=== PATIENT | female | born 1940 | race Hispanic/Latino ===

== ENCOUNTER 2016-12-31 11:50 | Inpatient (IN) | payer MEDICARE ==
--- NOTE | 2016-12-31 12:26 | ED PDOC ---
Syncope/Near Syncope/Dizziness Time Seen by Provider: 12/31/16 12:09 Chief Complaint (Nursing): Dizziness/Lightheaded History Per: Patient Onset/Duration Of Symptoms: Hrs (2) Current Symptoms Are (Timing): Intermittent Episodes Associated Symptoms Preceding Syncopal Episode: No Predromal Symptoms (Sudden Onset) Seizure Or Post-ictal Symptoms: None Severity: Mild Pain Scale Rating Of: 0 Additional Complaint(s): Intermittent episode of dizziness assoc with mild nausea.. Denies headache or abd pain. Mild/chest back discomfort but no palpitation. No LOC. No peripheral weakness or parasthesias. Past Medical History Vital Signs: Last Vital Signs Temp 98.7 F 12/31/16 11:54 Pulse 73 12/31/16 11:54 Resp 18 12/31/16 11:54 BP 178/79 H 12/31/16 11:54 Pulse Ox 95 12/31/16 11:54 - Medical History PMH: HTN - Family History Family History: States: Unknown Family Hx - Home Medications Home Medications: Ambulatory Orders Medication Instructions Recorded Ergocalciferol (Vitamin D2) 50,000 unit PO QWK 12/31/16 [Vitamin D2] Potassium Chloride [Klor-Con 10] 10 meq PO ASDIR 12/31/16 Valsartan/Hydrochlorothiazide 1 tab PO DAILY 12/31/16 [Diovan Hct 320-25 mg Tablet] amLODIPine [Norvasc] 5 mg PO DAILY 12/31/16 - Allergies Allergies/Adverse Reactions: Allergies Allergy/AdvReac Type Severity Reaction Status Date / Time No Known Allergies Allergy Verified 12/31/16 11:53 Review of Systems ROS Statement: Except As Marked, All Systems Reviewed And Found Negative Gastrointestinal: Positive for: Nausea Musculoskeletal: Positive for: Back Pain Neurological: Positive for: Dizziness Physical Exam - Reviewed Nursing Documentation Reviewed: Yes Vital Signs Reviewed: Yes - Physical Exam Appears: Positive for: Non-toxic, No Acute Distress Head Exam: Positive for: ATRAUMATIC, NORMAL INSPECTION, NORMOCEPHALIC Skin: Positive for: Normal Color, Warm, DRY Eye Exam: Positive for: EOMI, Normal appearance, PERRL ENT: Positive for: Normal ENT Inspection Neck: Positive for: Normal, Painless ROM Cardiovascular/Chest: Positive for: Regular Rate, Rhythm Respiratory: Positive for: CNT, Normal Breath Sounds Gastrointestinal/Abdominal: Positive for: Normal Exam, Bowel Sounds, Soft Back: Positive for: Normal Inspection Extremity: Positive for: Normal ROM, Pedal Edema Neurologic/Psych: Positive for: Alert, Oriented - Laboratory Results Result Diagrams: 12/31/16 12:46 12/31/16 16:17 - ECG O2 Sat by Pulse Oximetry: 95 Disposition - Clinical Impression Clinical Impression: Hypokalemia - Patient ED Disposition Is Patient to be Admitted: Yes - Disposition Disposition Time: 17:16 Condition: FAIR Forms: [facility] (Mal[place]ian) - Pt Status Changed To: Hospital Disposition Of: Observation - POA Present On Arrival: None
[2016-12-31 13:01] LABS: BASO # 0.1 K/uL (0.0-0.2); BASO % 0.8 % (0.0-2.0); HEMATOCRIT 38.9 % (34.0-47.0); LYMPH # 1.2 K/uL (1.0-4.3); LYMPH % 13.2 % (20.0-40.0); MEAN CELL VOLUME 86.2 fl (81.0-99.0); MEAN CORPUSCULAR HEMOGLOBIN 28.3 pg (27.0-31.0); MEAN CORPUSCULAR HGB CONC 32.8 g/dL (33.0-37.0); MEAN PLATELET VOLUME 7.7 fl (7.2-11.7); MONO # 0.7 K/uL (0.0-0.8); MONO % 8.3 % (0.0-10.0); NEUT # 6.8 K/uL (1.8-7.0); NEUT % 77.7 % (50.0-75.0); RED CELL DISTRIBUTION WIDTH 13.7 % (11.5-14.5); WHITE BLOOD COUNT 8.8 K/uL (4.8-10.8)
[2016-12-31 13:09] LABS: ALB/GLOB RATIO 1.2 (1.0-2.1); ALKALINE PHOSPHATASE 75 U/L (38-126); ALT/SGPT 26 U/L (9-52); AST/SGOT 28 U/L (14-36); BILIRUBIN,TOTAL 0.6 mg/dl (0.2-1.3); BLOOD UREA NITROGEN 14 mg/dl (7-17); CALCIUM 9.1 mg/dL (8.4-10.2); CARBON DIOXIDE 31 mmol/L (22-30); CHLORIDE 98 mmol/L (98-107); GFR AFRICAN-AMERICAN > 60; GLUCOSE,RANDOM 120 mg/dL (65-105); SODIUM 144 mmol/l (132-148); TOTAL PROTEIN 7.6 G/DL (6.3-8.2)
[2016-12-31] MEDS ORDERED: Potassium Chloride 20 mEq ER Tab PO ONE ×4 (13:17→13:44)
[2016-12-31 13:18] LABS: POTASSIUM 2.5 MMOL/L (3.6-5.0)
[2016-12-31] MEDS ORDERED: Potassium CL 10mEq/100ml 100 ML IVPB ONE ×2 (14:00→16:46)
[2016-12-31] MEDS: Potassium Chl 20 mEq in D5-NS 1,000 ML IV SCH (15:46)
[2016-12-31 16:43] LABS: BLOOD UREA NITROGEN 12 mg/dl (7-17); CALCIUM 9.2 mg/dL (8.4-10.2); CARBON DIOXIDE 31 mmol/L (22-30); CHLORIDE 99 mmol/L (98-107); GFR AFRICAN-AMERICAN > 60; GLUCOSE,RANDOM 103 mg/dL (65-105); POTASSIUM 2.9 MMOL/L (3.6-5.0); SODIUM 144 mmol/l (132-148)
[2016-12-31] MEDS ORDERED: Ergocalciferol 50,000 Intl Units Cap PO SCH (21:30)
[2017-01-01] MEDS: Potassium Chl 20 mEq in D5-NS 1,000 ML IV SCH ×2 (05:41→05:42)
[2017-01-01 06:33] LABS: HEMATOCRIT 38.3 % (34.0-47.0); MEAN CELL VOLUME 86.6 fl (81.0-99.0); MEAN CORPUSCULAR HEMOGLOBIN 28.9 pg (27.0-31.0); MEAN CORPUSCULAR HGB CONC 33.4 g/dL (33.0-37.0); RED CELL DISTRIBUTION WIDTH 14.1 % (11.5-14.5); WHITE BLOOD COUNT 7.1 K/uL (4.8-10.8)
[2017-01-01 06:47] LABS: ALB/GLOB RATIO 1.1 (1.0-2.1); ALKALINE PHOSPHATASE 70 U/L (38-126); ALT/SGPT 23 U/L (9-52); AST/SGOT 29 U/L (14-36); BILIRUBIN,TOTAL 0.7 mg/dl (0.2-1.3); BLOOD UREA NITROGEN 11 mg/dl (7-17); CALCIUM 8.6 mg/dL (8.4-10.2); CARBON DIOXIDE 31 mmol/L (22-30); CHLORIDE 102 mmol/L (98-107); GFR AFRICAN-AMERICAN > 60; GLUCOSE,RANDOM 105 mg/dL (65-105); POTASSIUM 2.8 MMOL/L (3.6-5.0); SODIUM 145 mmol/l (132-148); TOTAL PROTEIN 6.9 G/DL (6.3-8.2)
[2017-01-01] MEDS: Enoxaparin 40 mg Syringe SC SCH (08:36)
[2017-01-01] MEDS ORDERED: Potassium CL 10 MEQ/50 ML 50 ML IVPB SCH (09:00)
[2017-01-01] MEDS: Potassium Chloride 20 mEq ER Tab PO SCH ×2 (09:06→16:43)
--- NOTE | 2017-01-01 09:14 | CARD ---
APPROVED REPORT EKG Measurement Heart [id number] DC 130P8 [id number] <Conclusion> Normal sinus rhythm Possible Left atrial enlargement Borderline ECG
--- NOTE | 2017-01-01 09:31 | CARD ---
APPROVED REPORT EKG Measurement Heart [id number] W[place] 144P23 [id number] <Conclusion> Normal sinus rhythm Possible Left atrial enlargement Nonspecific ST abnormality Abnormal ECG
--- NOTE | 2017-01-01 09:44 | CARD ---
APPROVED REPORT EKG Measurement Heart [id number] FL 138P25 [id number] <Conclusion> Normal sinus rhythm Normal ECG
[2017-01-01] MEDS ORDERED: Iohexol 240 (50 ml) PO ONE (10:37)
[2017-01-01] MEDS: Potassium CL 10mEq/100ml 100 ML IVPB SCH ×3 (10:54→13:34)
[2017-01-01] MEDS ORDERED: Sodium Chloride 0.9% 50 ML IV ONE (15:38)
[2017-01-01] MEDS ORDERED: Iohexol 300 100 ML IJ ONE (15:38)
[2017-01-01] MEDS ORDERED: Artificial Tears Opht Soln OU PRN (16:14)
[2017-01-01] MEDS ORDERED: Erythromycin 0.5% Ophth Oint 1 APPLIC/3.5 G OU ONE (17:37)
[2017-01-01] MEDS ORDERED: Potassium CL 10mEq/100ml 100 ML IVPB ONE (17:40)
--- NOTE | 2017-01-01 21:17 | CP.PCM.HP ---
History of Present Illness - History of Present Illness History of Present Illness: A 76 ur old female with hx of HTN, RIGHT EYE CORNEAL TRANSPLANT sees PMD 1-2\ yr. seen by PMD for blood work, which showed low K, was given k-dur, still low, sent to ER for IV replacement. as per she per she lost weight 22 lbs in ;last2 yrs intentionally with weight watcher program, diet consists of fruits\bread and vegetables. K-2.9 in er ,given IV repeated one is 2.5last colonoscopy is many yrs ago. denies diarrhea,N\Vomiting Present on Admission - Present on Admission Any Indicators Present on Admission: No Review of Systems - Hematologic/Lymphatic Additional comments: - Constitutional Constitutional: Fatigue. absent: Fever, Frequent Falls, Weight Loss, Weakness - EENT Eyes: has Blurred Vision, Other Visual Disturbances Nose/Mouth/Throat: absent: Nasal Discharge, Dysphagia, Hoarsness - Cardiovascular Cardiovascular: noDyspnea on Exertion. absent: Chest Pain, Edema, Palpitations , Pedal Edema, Syncope - Respiratory Respiratory: noCough. absent: Wheezing, Chest Congestion, Excessive Mucous Production - Gastrointestinal Gastrointestinal: no Belching, Bloating, Dyspepsia. absent: Change in Stool Character, Constipation, Melena, Nausea, Vomiting - Genitourinary Genitourinary: no Voiding Freq/Small Amts. absent: Change in Urinary Stream - Musculoskeletal Musculoskeletal: Arthralgias, Back Pain - Neurological Neurological: absent: Behavioral Changes, Convulsions, Paresthesias, Vertigo - Psychiatric Psychiatric: absent: Confusion, Irritability Past Patient History - Past Social History Smoking Status: Former Smoker - CARDIAC Hx Cardiac Disorders: Yes (HTN) Hx Heart Murmur: Yes (stable) Hx Hypertension: Yes - PULMONARY Hx Respiratory Disorders: No - NEUROLOGICAL Hx Neurological Disorder: No - HEENT Hx HEENT Problems: No - RENAL Hx Chronic Kidney Disease: No - ENDOCRINE/METABOLIC Hx Endocrine Disorders: No - HEMATOLOGICAL/ONCOLOGICAL Hx Blood Disorders: No - INTEGUMENTARY Hx Dermatological Problems: No - MUSCULOSKELETAL/RHEUMATOLOGICAL Hx Musculoskeletal Disorders: No Hx Falls: No - GASTROINTESTINAL Hx Gastrointestinal Disorders: No - GENITOURINARY/GYNECOLOGICAL Hx Genitourinary Disorders: No - PSYCHIATRIC Hx Substance Use: No - SURGICAL HISTORY Hx Eye Surgery: Yes (cornea transplants x3; prosthetic) Other/Comment: Right eye surgery - ANESTHESIA Hx Anesthesia: Yes Hx Anesthesia Reactions: No Hx Malignant Hyperthermia: No Has any member of the family had a problem w/ anesthesia?: No Meds Allergies/Adverse Reactions: Allergies Allergy/AdvReac Type Severity Reaction Status Date / Time No Known Allergies Allergy Verified 12/31/16 11:53 Physical Exam - Additional Findings Additional findings: Constitutional Appears: No Acute Distress , NC\AT, - Head Exam Head Exam: ATRAUMATIC, NORMAL INSPECTION - Eye Exam Eye Exam: right eye- closed ,prosthetic eye with mild crusting left eye- EOMI, PEERLA - ENT Exam ENT Exam: Normal Exam - Neck Exam Neck exam: Positive for: Normal Inspection. Negative for: Thyromegaly - Respiratory Exam Respiratory Exam: Clear to Auscultation Bilateral, NORMAL BREATHING PATTERN - Cardiovascular Exam Cardiovascular Exam: REGULAR RHYTHM, +S1, +S2, Systolic Murmur - GI/Abdominal Exam GI & Abdominal Exam: Normal Bowel Sounds, Soft. absent: Distended, Organomegaly , Tenderness Back exam: NORMAL INSPECTION, lower back paraspinal tenderness - Neurological Exam Neurological exam: Alert, CN II-XII Intact, Oriented x3 no focal deficits , reflexes-2 + b\L UE\LE, [place]-negative Skin Exam: Intact, pallor, no wounds noted Results - Vital Signs Recent Vital Signs: Last Vital Signs Temp 98.3 F 01/01/17 19:21 Pulse 87 01/01/17 19:21 Resp 20 01/01/17 19:21 BP 166/99 H 01/01/17 19:21 Pulse Ox 96 01/01/17 19:21 - Labs Result Diagrams: 01/01/17 05:35 01/01/17 14:35 Labs: Laboratory Results - last 24 hr 01/01/17 01/01/17 01/01/17 05:35 05:35 14:35 WBC 7.1 RBC 4.43 Hgb 12.8 Hct 38.3 MCV 86.6 MCH 28.9 MCHC 33.4 RDW 14.1 Plt Count 229 Sodium 145 Potassium 2.8 L 3.2 L Chloride 102 Carbon Dioxide 31 H Anion Gap 15 BUN 11 Creatinine 0.7 Est GFR ( Amer) > 60 Est GFR (Non-Af Amer) > 60 Random Glucose 105 Calcium 8.6 Total Bilirubin 0.7 AST 29 ALT 23 Alkaline Phosphatase 70 Total Protein 6.9 Albumin 3.7 Globulin 3.2 Albumin/Globulin Ratio 1.1 Ur Random Sodium Ur Random Potassium 01/01/17 14:35 WBC RBC Hgb Hct MCV MCH MCHC RDW Plt Count Sodium Potassium Chloride Carbon Dioxide Anion Gap BUN Creatinine Est GFR ( Amer) Est GFR (Non-Af Amer) Random Glucose Calcium Total Bilirubin AST ALT Alkaline Phosphatase Total Protein Albumin Globulin Albumin/Globulin Ratio Ur Random Sodium 38 Ur Random Potassium 32.6 - EKG Data EKG Interpreted by: Myself EKG shows normal: Sinus rhythm Rate: Normal Assessment & Plan (1) Hypokalemia Status: Acute Comment: persistent refractory to oral therapy. urine elctrolytes. likley dietary? CT abdomen and pwlvis with contrast. IV runs with IVF kcl with d5NS. F\U BMP (2) Essential (primary) hypertension Status: Chronic Comment: d\c HCTZ. continue with norvasc and vasotec (3) Eye abnormalities Status: Chronic Comment: s\p corneal transplant. erythromycun ointment Decision To Admit - Pt Status Changed To: Hospital Disposition Of: Observation - . Bed Request Type: Telemetry Admitting Physician: Antonette Cooney
[2017-01-02 06:08] VITALS: RESP 20
[2017-01-02 06:34] LABS: BLOOD UREA NITROGEN 15 mg/dl (7-17); CALCIUM 8.4 mg/dL (8.4-10.2); CARBON DIOXIDE 29 mmol/L (22-30); CHLORIDE 105 mmol/L (98-107); GFR AFRICAN-AMERICAN > 60; GLUCOSE,RANDOM 109 mg/dL (65-105); POTASSIUM 3.5 MMOL/L (3.6-5.0); SODIUM 146 mmol/l (132-148)
[2017-01-02] MEDS: Potassium Chloride 20 mEq ER Tab PO SCH (08:42)
[2017-01-02] MEDS: Enoxaparin 40 mg Syringe SC SCH (08:43)
--- NOTE | 2017-01-02 11:06 | CT ---
PROCEDURE: CT Abdomen and Pelvis with contrast HISTORY: abd pain,nausea hypokalemia COMPARISON: Not available TECHNIQUE: Contrast dose: Abdominal CT Radiation dose: Total exam DLP = 1453.64 mGy-cm. This CT exam was performed using one or more of the following dose reduction techniques: Automated exposure control, adjustment of the mA and/or kV according to patient size, and/or use of iterative reconstruction technique. FINDINGS: LOWER THORAX: Very large hiatal hernia noted containing stomach, proximal duodenum and the majority of the pancreas. Entirety of the stomach is not included in this examination of the lower thorax. LIVER: Unremarkable. No gross lesion or ductal dilatation. GALLBLADDER AND BILE DUCTS: Unremarkable. PANCREAS: Unremarkable. No gross lesion or ductal dilatation. SPLEEN: Unremarkable. ADRENALS: Unilateral left adrenal hypertrophy. There is a 1.5 cm hyperdense right adrenal mass on this contrast-enhanced study. Statistically, this most likely represents an adrenal adenoma. KIDNEYS AND URETERS: Unremarkable. No hydronephrosis. No solid mass. VASCULATURE: Unremarkable. No aortic aneurysm. BOWEL: Sigmoid diverticulosis without evidence of diverticulitis. No bowel obstruction. Please note that the entire duodenum is not visualized since examination due to the large hiatal hernia. The entire stomach is not include. No other abnormal bowel loops. No bowel obstruction. APPENDIX: Normal appendix. PERITONEUM: Unremarkable. No free fluid. No free air. LYMPH NODES: Unremarkable. No enlarged lymph nodes. BLADDER: Poorly distended. No gross abnormality. REPRODUCTIVE: Normal postmenopausal uterus BONES: Mild compression deformity of the superior L4 vertebral endplate of indeterminate age. No other fracture identified. OTHER FINDINGS: None. IMPRESSION: Very large hiatal hernia containing stomach, proximal duodenum and the majority of pancreas. The entirety of the herniated duodenum and stomach are not included on this evaluation of the abdomen and lower thorax. No bowel obstruction. Sigmoid diverticulosis without evidence of diverticulitis. No other acute abnormality identified. Additional minor findings as above. [place] orbits review of so it is retroverted fibroid were you born or mid to upper back while from so Is also antegrade there many were we will 3rd nerve are well the over that it went [place] that they do not want not region on are you over in the interim which creates by niece who is now of [place] screw is suspect some spur are the heart family oral delay through the there is she developed for heart -not V/Q with a with a little have
[2017-01-02] MEDS ORDERED: Pantoprazole 40 mg EC Tab PO SCH (12:15)
[2017-01-02 12:20] VITALS: BP 175/91; PULSE 77; TEMP 98.5; O2SAT 98
[2017-01-02] MEDS ORDERED: Potassium CL 10 MEQ/50 ML 50 ML IVPB SCH (13:00)
--- NOTE | 2017-01-02 13:55 | CP.PCM.PCO ---
Assessment & Plan - Assessment and Plan (Free Text) Assessment: patient feels well today, denies dizziness, h/a, n/v/d, sob, cp or palpitations K=3.[address] Abd Pelvis results noted: Large hiatal hernia, requested surgical consult but pt. wishes to follow up with PMD outpatient All E Rx sent to [facility] pharmacy in [facility] Rx for repeat BMP provided pt. with f/u with PMD Dr.Marc Reid on Thursday pt. cleared for discharge to Home today by
--- NOTE | 2017-01-02 14:10 | CP.PCM.CON ---
History of Present Illness - History of Present Illness History of Present Illness: General Surgery consult for Dr. Baugh Consulted for: hiatal hernia Patient is a 76 y/o severely obese female who was admitted yesterday for severe hypokalemia and dizziness. A CT scan of the chest, abdomen, and pelvis with PO contrast was performed and showed a large hiatal hernia involving the stomach, the proximal duodenoum and part of the pancreas, so general surgery was consulted. Patient denies any nausea, vomiting, eructation, abdominal pain, loss of appetite, diarrhea, constipation, shortness of breath, or chest pain. Patient reports intermittent mild back pain but not other acute symptoms. Patient states her last BM was today and was normal color and consistency without blood. Patient reports a 20 pound intentional weight loss over one year. PMH: HTN, obesity, heart murmur PSH: eye surgery ALL: NKDA Review of Systems - Review of Systems All systems: reviewed and no additional remarkable complaints except (as per HPI ) - Constitutional Constitutional: absent: Chills, Fever Additional comments: normal appetite - Cardiovascular Cardiovascular: Edema. absent: Chest Pain, Dyspnea - Respiratory Respiratory: absent: Cough, Dyspnea, Chest Congestion - Gastrointestinal Gastrointestinal: absent: Abdominal Pain, Constipation, Diarrhea, Loose Stools, Melena, Nausea, Vomiting Additional comments: denies eructation - Genitourinary Genitourinary: absent: Dysuria, Hematuria - Musculoskeletal Musculoskeletal: Back Pain - Neurological Neurological: Dizziness. absent: Syncope, Weakness Past Patient History - Past Social History Smoking Status: Former Smoker - CARDIAC Hx Cardiac Disorders: Yes (HTN) Hx Heart Murmur: Yes (stable) Hx Hypertension: Yes - PULMONARY Hx Respiratory Disorders: No - NEUROLOGICAL Hx Neurological Disorder: No - HEENT Hx HEENT Problems: No - RENAL Hx Chronic Kidney Disease: No - ENDOCRINE/METABOLIC Hx Endocrine Disorders: No - HEMATOLOGICAL/ONCOLOGICAL Hx Blood Disorders: No - INTEGUMENTARY Hx Dermatological Problems: No - MUSCULOSKELETAL/RHEUMATOLOGICAL Hx Musculoskeletal Disorders: No Hx Falls: No - GASTROINTESTINAL Hx Gastrointestinal Disorders: No - GENITOURINARY/GYNECOLOGICAL Hx Genitourinary Disorders: No - PSYCHIATRIC Hx Substance Use: No - SURGICAL HISTORY Hx Eye Surgery: Yes (cornea transplants x3; prosthetic) Other/Comment: Right eye surgery - ANESTHESIA Hx Anesthesia: Yes Hx Anesthesia Reactions: No Hx Malignant Hyperthermia: No Has any member of the family had a problem w/ anesthesia?: No Meds Home Medications: Home Medication List Medication Instructions Recorded Confirmed Type Carvedilol [Coreg] 3.125 mg PO Q12 #60 tab 01/02/17 Rx Pantoprazole [Protonix EC Tab] 40 mg PO DAILY #30 ect 01/02/17 Rx Potassium Chloride [K-Dur 20 mEq 20 meq PO DAILY #3 tab 01/02/17 Rx ER Tab] Valsartan [Diovan] 320 mg PO DAILY #30 tab 01/02/17 Rx amLODIPine [Norvasc] 10 mg PO DAILY #30 tab 01/02/17 Rx Allergies/Adverse Reactions: Allergies Allergy/AdvReac Type Severity Reaction Status Date / Time No Known Allergies Allergy Verified 12/31/16 11:53 - Medications Medications: Current Medications Amlodipine Besylate (Norvasc) 10 mg PO DAILY [facility] Last Admin: 01/02/17 08:42 Dose: 10 mg Artificial Tears (Artificial Tears) 2 drop OU Q6 PRN PRN Reason: Dry eyes Last Admin: 01/01/17 17:19 Dose: 2 drop Carvedilol (Coreg) 3.125 mg PO Q12 [facility] Enoxaparin Sodium (Lovenox) 40 mg SC DAILY [facility] PRN Reason: Protocol Last Admin: 01/02/17 08:43 Dose: 40 mg Ergocalciferol (Drisdol 50,000 Intl Units Cap) 1 cap PO Q7D [facility] Last Admin: 01/01/17 01:21 Dose: Not Given Potassium Chloride (Potassium Cl 10meq/50ml Sterile Water) 50 mls @ 50 mls/hr IVPB Q1 [facility] Stop: 01/02/17 15:59 Pantoprazole Sodium (Protonix Ec Tab) 40 mg PO DAILY [facility] Potassium Chloride (K-Dur 20 Meq Er Tab) 20 meq PO BID [facility] Last Admin: 01/02/17 08:42 Dose: 20 meq Valsartan (Diovan) 320 mg PO DAILY [facility] Last Admin: 01/02/17 08:42 Dose: 320 mg Physical Exam - Constitutional Appears: Non-toxic, No Acute Distress - Head Exam Head Exam: ATRAUMATIC, NORMOCEPHALIC - Eye Exam Eye Exam: Normal appearance. absent: Conjunctival injection, Scleral icterus - ENT Exam ENT Exam: Mucous Membranes Moist, Normal Oropharynx - Respiratory Exam Respiratory Exam: NORMAL BREATHING PATTERN. absent: Accessory Muscle Use, Chest Wall Tenderness, Respiratory Distress - Cardiovascular Exam Cardiovascular Exam: RRR - GI/Abdominal Exam GI & Abdominal Exam: Soft. absent: Distended, Tenderness - Extremities Exam Extremities exam: Positive for: pedal edema. Negative for: calf tenderness, tenderness - Back Exam Back exam: NORMAL INSPECTION. absent: CVA tenderness (L), CVA tenderness (R), muscle spasm, paraspinal tenderness - Neurological Exam Neurological exam: Alert, Oriented x3 - Psychiatric Exam Psychiatric exam: Normal Affect, Normal Mood - Skin Skin Exam: Dry, Intact, Normal Color, Warm Results - Vital Signs Recent Vital Signs: Last Vital Signs Temp 98.5 F 01/02/17 12:00 Pulse 77 01/02/17 12:00 Resp 20 01/02/17 12:00 BP 175/91 H 01/02/17 12:00 Pulse Ox 98 01/02/17 12:00 - Labs Result Diagrams: 01/01/17 05:35 01/02/17 05:30 Labs: Laboratory Results - last 24 hr 01/01/17 01/01/17 01/02/17 14:35 14:35 05:30 Sodium 146 Potassium 3.2 L 3.5 L Chloride 105 Carbon Dioxide 29 Anion Gap 16 BUN 15 Creatinine 0.9 Est GFR ( Amer) > 60 Est GFR (Non-Af Amer) > 60 Random Glucose 109 H Calcium 8.4 Ur Random Sodium 38 Ur Random Potassium 32.6 Assessment & Plan - Assessment and Plan (Free Text) Assessment: 76F with large hiatal hernia with stomach, proximal duodenum, and pancreas, no abdominal or respiratory symptoms Plan: - No plan for surgical intervention at this time since patient is asymptomatic - Patient may follow up with Dr. Baugh or his partners in his office as an outpatient - Please reach out to the surgical team for any further questions or concerns Discussed with Dr. Amauri Hammer, PGY2
== END 2017-01-02 15:55 | disposition home or self-care (01) | DRG 641 ==
LOC: H.ER 11:50 → H.ERHOLD 13:23 → H.TEL 18:56 → OBSVTOIN 01-01 13:23
PROVIDERS: ADMIT Internal Medicine; ATTEND Internal Medicine
DX: E87.6 Hypokalemia (principal); E66.01 Morbid (severe) obesity due to excess calories; Z68.35 Body mass index [BMI] 35.0-35.9, adult; K44.9 Diaphragmatic hernia without obstruction or gangrene; I10 Essential (primary) hypertension; Z94.7 Corneal transplant status; Z87.891 Personal history of nicotine dependence

== ENCOUNTER 2017-05-04 13:23 | Inpatient (IN) | payer MEDICARE ==
--- NOTE | 2017-05-04 14:35 | ED PDOC ---
Syncope/Near Syncope/Dizziness Time Seen by Provider: 05/04/17 13:37 Chief Complaint (Nursing): Dizziness/Lightheaded Chief Complaint (Provider): "i feel off" History Per: Patient History/Exam Limitations: no limitations Onset/Duration Of Symptoms: Hrs Current Symptoms Are (Timing): Still Present Activity At Onset Of Symptoms: Walking, Had Just Stood up Fall Associated With With Symptoms: No Additional Complaint(s): 77 y/o female, hx of HTN, on valsartan/amlodipine, presents complaining of acute onset of dizziness at 10:30am this morning. Pt reports being in state of good health until about last night, where she reports she began to feel a bit unsteady. She woke up this morning, still "feeling off" and took her usual medications as prescribed. She reports feeling more unsteady and weaker than usual and also has some decreased hearing in the right ear. She denies any triggering event. Reports suffering from a bad cold during the first week or so of April. She feels this is similar weakness to when she was admitted for Hypokalemia in Dec 2016. She denies any fever/chills, headaches, changes in vision, CP/SOB/palpitations, pre-syncopal/black out symptoms, LOC, fall, N/V/D, numbness/tingling, urinary symptoms. Past Medical History Reviewed: Historical Data, Nursing Documentation, Vital Signs Vital Signs: Last Vital Signs Temp 97.4 F L 05/04/17 13:27 Pulse 61 05/04/17 13:27 Resp 18 05/04/17 13:27 BP 137/69 05/04/17 13:27 Pulse Ox 96 05/04/17 13:27 - Medical History PMH: HTN Denies: Chronic Kidney Disease - Family History Family History: States: Unknown Family Hx - Home Medications Home Medications: Ambulatory Orders Medication Instructions Recorded Ergocalciferol (Vitamin D2) 50,000 unit PO QWK 12/31/16 [Vitamin D2] Carvedilol [Coreg] 3.125 mg PO Q12 #60 tab 01/02/17 Pantoprazole [Protonix EC Tab] 40 mg PO DAILY #30 ect 01/02/17 Potassium Chloride [K-Dur 20 mEq 20 meq PO DAILY #3 tab 01/02/17 ER Tab] Valsartan [Diovan] 320 mg PO DAILY #30 tab 01/02/17 amLODIPine [Norvasc] 10 mg PO DAILY #30 tab 01/02/17 - Allergies Allergies/Adverse Reactions: Allergies Allergy/AdvReac Type Severity Reaction Status Date / Time No Known Allergies Allergy Verified 12/31/16 11:53 Review of Systems ROS Statement: Except As Marked, All Systems Reviewed And Found Negative Physical Exam - Reviewed Nursing Documentation Reviewed: Yes Vital Signs Reviewed: Yes - Physical Exam Appears: Positive for: Non-toxic, No Acute Distress Head Exam: Positive for: ATRAUMATIC Skin: Positive for: Warm, Dry Eye Exam: Positive for: EOMI, PERRL, Conjunctival injection. Negative for: Normal appearance (s/p Right Enucleation surgery ), Nystagmus, Periorbital swelling ENT: Positive for: Normal ENT Inspection Neck: Positive for: Painless ROM, Supple Cardiovascular/Chest: Positive for: Regular Rate, Rhythm, Murmur, Bradycardia, Tachycardia. Negative for: JVD Respiratory: Positive for: Normal Breath Sounds. Negative for: Decreased Breath Sounds, Accessory Muscle Use, Crackles, Rales, Rhonchi, Wheezing, Respiratory Distress Pulses-Radial (L): 2+ Pulses-Radial (R): 2+ DTR - Knee (R): 2+ DTR - Knee (L): 2+ Lymphatic: Negative for: Adenopathy Neurologic/Psych: Positive for: Alert, senior patrol agent II-XII, Oriented, Cerebellar Tests ( finger-nose inaccurate, heel sanchez inaccurate ). Negative for: Aphasia, Facial Droop - Laboratory Results Result Diagrams: 05/04/17 14:44 05/04/17 14:44 - ECG O2 Sat by Pulse Oximetry: 96 - Progress ED Course And Treament: CBC CMP Troponin I Coags EKG Head CT w/o contrast pt to be admitted for dizziness/vertebrobasilar insuff neurology consult pending Disposition - Clinical Impression Clinical Impression: Vertebrobasilar insufficiency - Patient ED Disposition Is Patient to be Admitted: Yes - Disposition Disposition Time: 17:24 Condition: STABLE - Pt Status Changed To: Hospital Disposition Of: Inpatient - Admit Certification Admit to Inpatient:: After my assessment, the patient will require hospitalization for at least two midnights. This is because of the severity of symptoms shown, intensity of services needed, and/or the medical risk in this patient being treated as an outpatient.
[2017-05-04 14:47] LABS: HEMOGLOBIN 14.7 g/dL (12.0-16.0); MEAN CELL VOLUME 86.7 fl (81.0-99.0); MEAN CORPUSCULAR HEMOGLOBIN 29.1 pg (27.0-31.0); MEAN CORPUSCULAR HGB CONC 33.5 g/dL (33.0-37.0); RBC 5.04 Mil/uL (3.80-5.20); RED CELL DISTRIBUTION WIDTH 14.1 % (11.5-14.5); WHITE BLOOD COUNT 10.1 K/uL (4.8-10.8)
[2017-05-04 14:59] LABS: ALB/GLOB RATIO 1.2 (1.0-2.1); ALBUMIN 4.7 g/dL (3.5-5.0); ALT/SGPT 22 U/L (9-52); AST/SGOT 21 U/L (14-36); BLOOD UREA NITROGEN 13 mg/dl (7-17); CALCIUM 9.8 mg/dL (8.4-10.2); GFR AFRICAN-AMERICAN > 60; GFR NON-AFRICAN AMERICAN > 60
[2017-05-04 15:13] LABS: PROTHROMBIN TIME 11.1 Seconds (9.8-13.1)
--- NOTE | 2017-05-04 15:31 | CT ---
PROCEDURE: CT HEAD WITHOUT CONTRAST. HISTORY: dizziness COMPARISON: None available. TECHNIQUE: Axial computed tomography images were obtained through the head/brain without intravenous contrast. Radiation dose: Total exam DLP = 1617.76 mGy-cm. This CT exam was performed using one or more of the following dose reduction techniques: Automated exposure control, adjustment of the mA and/or kV according to patient size, and/or use of iterative reconstruction technique. FINDINGS: HEMORRHAGE: No intracranial hemorrhage. BRAIN: No mass effect or edema. No atrophy or chronic microvascular ischemic changes. VENTRICLES: Unremarkable. No hydrocephalus. CALVARIUM: Unremarkable. PARANASAL SINUSES: Unremarkable as visualized. No significant inflammatory changes. MASTOID AIR CELLS: Unremarkable as visualized. No inflammatory changes. OTHER FINDINGS: None. IMPRESSION: Suboptimal study due to patient's motion . No evidence of acute intracranial hemorrhage mass effect or midline shift.
[2017-05-04 16:05] LABS: SQUAMOUS EPITHIAL < 1 /hpf (0-5); URINE BILIRUBIN NEGATIVE (NEGATIVE); URINE BLOOD NEGATIVE (NEGATIVE); URINE CLARITY CLEAR (Clear); URINE COLOR COLORLESS (YELLOW); URINE GLUCOSE (UA) NEG (Normal); URINE LEUKOCYTE ESTERASE NEG Leu/uL (Negative); URINE NITRATE NEGATIVE (NEGATIVE); URINE PROTEIN NEGATIVE (NEGATIVE); URINE UROBILINOGEN 0.2-1.0 mg/dL (0.2-1.0)
[2017-05-04] MEDS ORDERED: Carbamide Peroxide OTIC SOLUTION AD SCH (17:00)
[2017-05-04] MEDS: Carbamide Peroxide OTIC SOLUTION AD SCH (17:10)
--- NOTE | 2017-05-05 08:39 | CARD ---
APPROVED REPORT EKG Measurement Heart [id number] [place] 134P25 [id number] <Conclusion> Normal sinus rhythm Possible Left atrial enlargement Borderline ECG
[2017-05-05] MEDS: Carbamide Peroxide OTIC SOLUTION AD SCH ×2 (10:55→17:31)
--- NOTE | 2017-05-05 13:02 | CP.PCM.CON ---
History of Present Illness - History of Present Illness History of Present Illness: This 77-year-old female is well -known to me from a prior office visit in 2015. The patient has come to the emergency room complaining off a brief sense of lightheadedness which promptly resolved. By the time she came to the emergency room she did not any further lightheadedness and it has not recurred since over the last 24 hours. The patient gives history of having been hospitalized in December 2016 with similar symptoms and was found to have hypokalemia which was corrected. Her symptoms of lightheadedness where a scribe to hypokalemia and the patient was sent home and has not had any further lightheadedness. She gives history of recently developing severe bronchitis and pharyngitis and has abruptly diminished hearing in the right ear. The patient has been chronically overweight and a hypertensive for more than 10 years. She has had severe osteoarthritis of her knee and used to take non- steroidal anti-inflammation drugs which she has discontinued since mid 2015. She used to be a smoker until 12 years back and has quit since. She has never suffered a myocardial infarction or congestive cardiac failure. 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 Physical examination shows a pleasant elderly lady who is alert awake weren't and afebrile. She breathes comfortably lying flat in bed at 16 breaths per minute and has a heart rate of 74 bpm regular. Her blood pressure in the left upper extremity was 160/80 mmHg. The patient has not received her antihypertensives for over 24 hours. Her jugular venous pressure was not elevated there was mild pitting edema hour both lower extremities. Pedal pulses were feeble but distinct of present. There were no carotid bruits. Her next images are warm her nailbeds were pink and there were no central or peripheral cyanosis. The apex was not palpable the first and second heart sounds are normal there was a very brief ejection systolic murmur in the aortic area the second heart sound was well heard. Abdomen was soft liver and spleen are not palpable. Her electro-cardiogram showed sinus rhythm with a normal EKG pattern there was a suggestion of left atrial enlargement. Her lab data was noted. Her serum potassium and TSH and BUN and creatinine were normal. Impression: Vertigo possibly secondary to right vestibular dysfunction. Hypertension. Chronic exogenous obesity. Her telemetry shows sinus rhythm at physiological rates. The patient is stable from cardiac vascular point of few and no further intervention is recommended at this juncture. Past Patient History - Past Medical History & Family History Past Medical History?: Yes - Past Social History Smoking Status: Never Smoked - CARDIAC Hx Cardiac Disorders: Yes Hx Hypertension: Yes - PULMONARY Hx Respiratory Disorders: No - NEUROLOGICAL Hx Neurological Disorder: No - HEENT Hx HEENT Problems: Yes Hx Blind: Yes (Right eye) - RENAL Hx Chronic Kidney Disease: No - ENDOCRINE/METABOLIC Hx Endocrine Disorders: No - HEMATOLOGICAL/ONCOLOGICAL Hx Blood Disorders: No Hx AIDS: No Hx Human Immunodeficiency Virus (HIV): No - INTEGUMENTARY Hx Dermatological Problems: No - MUSCULOSKELETAL/RHEUMATOLOGICAL Hx Musculoskeletal Disorders: No Hx Falls: No Other/Comment: Uses cane - GASTROINTESTINAL Hx Gastrointestinal Disorders: No - GENITOURINARY/GYNECOLOGICAL Hx Genitourinary Disorders: No - PSYCHIATRIC Hx Psychophysiologic Disorder: No Hx Substance Use: No - SURGICAL HISTORY Hx Surgeries: Yes Hx Eye Surgery: Yes (cornea transplants x3; prosthetic) Other/Comment: Right eye surgery - ANESTHESIA Hx Anesthesia: Yes Hx Anesthesia Reactions: No Hx Malignant Hyperthermia: No Meds Allergies/Adverse Reactions: Allergies Allergy/AdvReac Type Severity Reaction Status Date / Time No Known Allergies Allergy Verified 12/31/16 11:53 - Medications Medications: Current Medications Amlodipine Besylate (Norvasc) 10 mg PO DAILY [facility] Carbamide Peroxide (Debrox Ear Drops) 5 drop AD BID [facility] Last Admin: 05/05/17 10:55 Dose: 5 drop Enoxaparin Sodium (Lovenox) 40 mg SC DAILY [facility] PRN Reason: Protocol Pantoprazole Sodium (Protonix Ec Tab) 40 mg PO DAILY [facility] Valsartan (Diovan) 320 mg PO DAILY [facility] Results - Vital Signs Recent Vital Signs: Last Vital Signs Temp 98.7 F 05/05/17 12:00 Pulse 70 05/05/17 12:00 Resp 18 05/05/17 12:00 BP 152/84 H 05/05/17 12:00 Pulse Ox 96 05/05/17 12:00 - Labs Result Diagrams: 05/04/17 14:44 05/04/17 14:44 Labs: Laboratory Results - last 24 hr 05/04/17 05/04/17 05/04/17 14:44 14:44 14:44 WBC 10.1 RBC 5.04 Hgb 14.7 Hct 43.7 MCV 86.7 MCH 29.1 MCHC 33.5 RDW 14.1 Plt Count 268 PT 11.1 INR 1.0 APTT 34.0 Sodium 143 Potassium 4.4 Chloride 104 Carbon Dioxide 25 Anion Gap 18 BUN 13 Creatinine 0.8 Est GFR ( Amer) > 60 Est GFR (Non-Af Amer) > 60 POC Glucose (mg/dL) Random Glucose 113 H Calcium 9.8 Total Bilirubin 0.7 AST 21 ALT 22 Alkaline Phosphatase 93 Troponin I < 0.0120 Total Protein 8.8 H Albumin 4.7 Globulin 4.1 H Albumin/Globulin Ratio 1.2 Vitamin B12 TSH 3rd Generation Urine Color Urine Clarity Urine pH Ur Specific [place] Urine Protein Urine Glucose (UA) Urine Ketones Urine Blood Urine Nitrate Urine Bilirubin Urine Urobilinogen Ur Leukocyte Esterase Urine RBC (Auto) Urine Microscopic WBC Ur Squamous Epith Cells 05/04/17 05/04/17 05/05/17 14:46 15:53 06:05 WBC RBC Hgb Hct MCV MCH MCHC RDW Plt Count PT INR APTT Sodium Potassium Chloride Carbon Dioxide Anion Gap BUN Creatinine Est GFR ( Amer) Est GFR (Non-Af Amer) POC Glucose (mg/dL) 105 Random Glucose Calcium Total Bilirubin AST ALT Alkaline Phosphatase Troponin I < 0.0120 Total Protein Albumin Globulin Albumin/Globulin Ratio Vitamin B12 458 TSH 3rd Generation 1.47 Urine Color Colorless Urine Clarity Clear Urine pH 8.0 Ur Specific [place] 1.005 Urine Protein Negative Urine Glucose (UA) Neg Urine Ketones Negative Urine Blood Negative Urine Nitrate Negative Urine Bilirubin Negative Urine Urobilinogen 0.2-1.0 Ur Leukocyte Esterase Neg Urine RBC (Auto) 1 Urine Microscopic WBC < 1 Ur Squamous Epith Cells < 1
[2017-05-05] MEDS: Enoxaparin 40 mg Syringe SC SCH (13:05)
--- NOTE | 2017-05-05 15:03 | CP.PCM.HP ---
History of Present Illness - History of Present Illness History of Present Illness: 77 yr old F presented to ED with complaint of dizziness and feeling unbalanced x 1 day. PMHx includes HTN and right eye removal. Associated symptoms are decreased hearing in right ear, and worsening of symptoms after she took her meds. Denies chest pain, SOB, syncope, confusion, fevers, chills, nausea or vomiting. Patient reports her symptoms are similar to when she was admitted for hypokalemia in 12/2016. PMD: Rigo Mathews Specialists: Dr. 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 FMHx: mother at 84 yrs old from Alzheimers' complications, father at 59 from [place], brother from lymphoma at 69 SocHx: denies tobacco/Etoh or drugs, lives with Medications: see medication reconciliation Allergies: NKDA Present on Admission - Present on Admission Any Indicators Present on Admission: No History of DVT/PE: No History of Uncontrolled Diabetes: No Urinary Catheter: No Decubitus Ulcer Present: No History Surgical Site Infection Following: None Review of Systems - Review of Systems All systems: reviewed and no additional remarkable complaints except (for what is mentioned in the HPI) - Constitutional Constitutional: absent: Chills, Fever - EENT Eyes: absent: Blurred Vision, Change in Vision Ears: Abnormal Hearing (right ear), Dizziness. absent: Ear Discharge, Ear Pain Nose/Mouth/Throat: absent: Nasal Congestion, Nasal Discharge - Cardiovascular Cardiovascular: absent: Chest Pain, Dyspnea - Respiratory Respiratory: absent: Hemoptysis - Gastrointestinal Gastrointestinal: absent: Abdominal Pain, Nausea, Vomiting - Genitourinary Genitourinary: absent: Difficulty Urinating, Dysuria - Musculoskeletal Musculoskeletal: absent: Muscle Weakness, Radiating Pain into Limb - Integumentary Integumentary: absent: Bleeding Lesions - Neurological Neurological: absent: Confusion - Psychiatric Psychiatric: absent: Anxiety, Change in Appetite - Endocrine Endocrine: absent: Polydipsia, Polyuria - Hematologic/Lymphatic Hematologic: absent: Easy Bleeding, Easy Bruising Past Patient History - Past Medical History & Family History Past Medical History?: Yes - Past Social History Smoking Status: Never Smoked - CARDIAC Hx Cardiac Disorders: Yes Hx Hypertension: Yes - PULMONARY Hx Respiratory Disorders: No - NEUROLOGICAL Hx Neurological Disorder: No - HEENT Hx HEENT Problems: Yes Hx Blind: Yes (Right eye) - RENAL Hx Chronic Kidney Disease: No - ENDOCRINE/METABOLIC Hx Endocrine Disorders: No - HEMATOLOGICAL/ONCOLOGICAL Hx Blood Disorders: No Hx AIDS: No Hx Human Immunodeficiency Virus (HIV): No - INTEGUMENTARY Hx Dermatological Problems: No - MUSCULOSKELETAL/RHEUMATOLOGICAL Hx Musculoskeletal Disorders: No Hx Falls: No Other/Comment: Uses cane - GASTROINTESTINAL Hx Gastrointestinal Disorders: No - GENITOURINARY/GYNECOLOGICAL Hx Genitourinary Disorders: No - PSYCHIATRIC Hx Psychophysiologic Disorder: No Hx Substance Use: No - SURGICAL HISTORY Hx Surgeries: Yes Hx Eye Surgery: Yes (cornea transplants x3; prosthetic) Other/Comment: Right eye surgery - ANESTHESIA Hx Anesthesia: Yes Hx Anesthesia Reactions: No Hx Malignant Hyperthermia: No Meds Allergies/Adverse Reactions: Allergies Allergy/AdvReac Type Severity Reaction Status Date / Time No Known Allergies Allergy Verified 12/31/16 11:53 Physical Exam - Constitutional Appears: No Acute Distress - Head Exam Head Exam: ATRAUMATIC, NORMOCEPHALIC - Eye Exam Eye Exam: EOMI (left), PERRL (left) Additional comments: right glass prosthetic - ENT Exam ENT Exam: Mucous Membranes Moist - Neck Exam Neck exam: Positive for: Full Rom. Negative for: Lymphadenopathy - Respiratory Exam Respiratory Exam: Clear to Auscultation Bilateral, NORMAL BREATHING PATTERN - Cardiovascular Exam Cardiovascular Exam: REGULAR RHYTHM, +S1, +S2 - GI/Abdominal Exam GI & Abdominal Exam: Normal Bowel Sounds, Soft (obese) - Extremities Exam Extremities exam: Positive for: full ROM, pedal edema (trace bilaterally) - Neurological Exam Neurological exam: Alert, Oriented x3 - Psychiatric Exam Psychiatric exam: Normal Affect, Normal Mood - Skin Skin Exam: Dry, Normal Color, Warm Results - Vital Signs Recent Vital Signs: Last Vital Signs Temp 98.7 F 05/05/17 12:00 Pulse 80 05/05/17 13:04 Resp 18 05/05/17 12:00 BP 152/84 H 05/05/17 13:04 Pulse Ox 96 05/05/17 12:00 - Labs Result Diagrams: 05/04/17 14:44 05/04/17 14:44 Labs: Laboratory Results - last 24 hr 05/04/17 05/04/17 05/04/17 14:44 14:44 14:44 WBC 10.1 RBC 5.04 Hgb 14.7 Hct 43.7 MCV 86.7 MCH 29.1 MCHC 33.5 RDW 14.1 Plt Count 268 PT 11.1 INR 1.0 APTT 34.0 Troponin I < 0.0120 Vitamin B12 TSH 3rd Generation Urine Color Urine Clarity Urine pH Ur Specific [place] Urine Protein Urine Glucose (UA) Urine Ketones Urine Blood Urine Nitrate Urine Bilirubin Urine Urobilinogen Ur Leukocyte Esterase Urine RBC (Auto) Urine Microscopic WBC Ur Squamous Epith Cells 05/04/17 05/05/17 15:53 06:05 WBC RBC Hgb Hct MCV MCH MCHC RDW Plt Count PT INR APTT Troponin I < 0.0120 Vitamin B12 458 TSH 3rd Generation 1.47 Urine Color Colorless Urine Clarity Clear Urine pH 8.0 Ur Specific [place] 1.005 Urine Protein Negative Urine Glucose (UA) Neg Urine Ketones Negative Urine Blood Negative Urine Nitrate Negative Urine Bilirubin Negative Urine Urobilinogen 0.2-1.0 Ur Leukocyte Esterase Neg Urine RBC (Auto) 1 Urine Microscopic WBC < 1 Ur Squamous Epith Cells < 1 Assessment & Plan - Assessment and Plan (Free Text) Assessment: 77 yr old F admitted for dizziness and disequilibrium. -Admit to tele -cardiac monitoring -continue home medications -heart healthy diet -Neurology on consult: will follow recommendations -Cardiology on consult: will follow recommendations -Lovenox 40mg SC QD for DVT prophylaxis -PT -f/u labs - Date & Time Date: 05/05/17 Time: 07:30
--- NOTE | 2017-05-05 16:32 | CP.PCM.CON ---
History of Present Illness - History of Present Illness History of Present Illness: Mr. 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 She did not describe any vertigo, but does have some hearing loss in the right ear, that seems to be improving since using ear drops. She does not have ringing or a "swooshing" sound in her ear. Review of Systems - Review of Systems All systems: reviewed and no additional remarkable complaints except Past Patient History - Past Medical History & Family History Past Medical History?: Yes - Past Social History Smoking Status: Never Smoked - CARDIAC Hx Cardiac Disorders: Yes Hx Hypertension: Yes - PULMONARY Hx Respiratory Disorders: No - NEUROLOGICAL Hx Neurological Disorder: No - HEENT Hx HEENT Problems: Yes Hx Blind: Yes (Right eye) - RENAL Hx Chronic Kidney Disease: No - ENDOCRINE/METABOLIC Hx Endocrine Disorders: No - HEMATOLOGICAL/ONCOLOGICAL Hx Blood Disorders: No Hx AIDS: No Hx Human Immunodeficiency Virus (HIV): No - INTEGUMENTARY Hx Dermatological Problems: No - MUSCULOSKELETAL/RHEUMATOLOGICAL Hx Musculoskeletal Disorders: No Hx Falls: No Other/Comment: Uses cane - GASTROINTESTINAL Hx Gastrointestinal Disorders: No - GENITOURINARY/GYNECOLOGICAL Hx Genitourinary Disorders: No - PSYCHIATRIC Hx Psychophysiologic Disorder: No Hx Substance Use: No - SURGICAL HISTORY Hx Surgeries: Yes Hx Eye Surgery: Yes (cornea transplants x3; prosthetic) Other/Comment: Right eye surgery - ANESTHESIA Hx Anesthesia: Yes Hx Anesthesia Reactions: No Hx Malignant Hyperthermia: No Meds Allergies/Adverse Reactions: Allergies Allergy/AdvReac Type Severity Reaction Status Date / Time No Known Allergies Allergy Verified 12/31/16 11:53 - Medications Medications: Current Medications Amlodipine Besylate (Norvasc) 10 mg PO DAILY [facility] Last Admin: 05/05/17 13:04 Dose: 10 mg Carbamide Peroxide (Debrox Ear Drops) 5 drop AD BID [facility] Last Admin: 05/05/17 10:55 Dose: 5 drop Enoxaparin Sodium (Lovenox) 40 mg SC DAILY [facility] PRN Reason: Protocol Last Admin: 05/05/17 13:05 Dose: 40 mg Pantoprazole Sodium (Protonix Ec Tab) 40 mg PO DAILY [facility] Valsartan (Diovan) 320 mg PO DAILY [facility] Last Admin: 05/05/17 13:04 Dose: 320 mg Physical Exam - Constitutional Appears: Well - Head Exam Head Exam: ATRAUMATIC, NORMAL INSPECTION, NORMOCEPHALIC - Neck Exam Neck exam: Positive for: Normal Inspection - Respiratory Exam Respiratory Exam: Clear to Auscultation Bilateral, NORMAL BREATHING PATTERN - GI/Abdominal Exam GI & Abdominal Exam: Normal Bowel Sounds, Soft. absent: Tenderness - Rectal Exam Rectal Exam: Deferred - Extremities Exam Extremities exam: Positive for: normal inspection - Neurological Exam Neurological exam: Alert, CN II-XII Intact, Normal Gait, Oriented x3, Reflexes Normal Results - Vital Signs Recent Vital Signs: Last Vital Signs Temp 98.5 F 05/05/17 16:20 Pulse 73 05/05/17 16:20 Resp 14 05/05/17 16:20 BP 154/92 H 05/05/17 16:20 Pulse Ox 96 05/05/17 16:20 - Labs Result Diagrams: 05/04/17 14:44 05/04/17 14:44 Labs: Laboratory Results - last 24 hr 05/05/17 05/05/17 05/05/17 06:05 14:12 14:30 POC Glucose (mg/dL) 119 H Troponin I < 0.0120 < 0.0120 Vitamin B12 458 TSH 3rd Generation 1.47 Assessment & Plan (1) Dizziness Assessment and Plan: This may be related to medications, or changes in position, possibly due to dysequilibrium. I recommend obtaining a CTA of the head/neck to rule out vertebrobasilar insufficiency. Otherwise, continue cardiac work-up, hydration, PT/OT eval and may start aspirin 81 mg daily. Thank you. Status: Acute Priority: High
[2017-05-05] MEDS ORDERED: Erythromycin 0.5% Ophth Oint 1 APPLIC/3.5 G OU SCH (23:00)
[2017-05-05] MEDS: Erythromycin 0.5% Ophth Oint 1 APPLIC/G OU SCH (23:45)
[2017-05-05] MEDS: Artificial Tears Opht Soln OU PRN (23:45)
[2017-05-06 00:21] VITALS: RESP 18
[2017-05-06 06:54] LABS: HEMOGLOBIN 13.4 g/dL (12.0-16.0); MEAN CELL VOLUME 86.7 fl (81.0-99.0); MEAN CORPUSCULAR HEMOGLOBIN 28.8 pg (27.0-31.0); MEAN CORPUSCULAR HGB CONC 33.2 g/dL (33.0-37.0); RBC 4.64 Mil/uL (3.80-5.20); RED CELL DISTRIBUTION WIDTH 14.2 % (11.5-14.5); WHITE BLOOD COUNT 6.5 K/uL (4.8-10.8)
[2017-05-06 07:27] LABS: LDL CHOLESTEROL 92 mg/dL (0-129)
[2017-05-06 07:33] LABS: ALB/GLOB RATIO 1.1 (1.0-2.1); ALT/SGPT 21 U/L (9-52); AST/SGOT 17 U/L (14-36); BLOOD UREA NITROGEN 13 mg/dl (7-17); CALCIUM 9.3 mg/dL (8.4-10.2); GFR AFRICAN-AMERICAN > 60; GFR NON-AFRICAN AMERICAN > 60; HDL CHOLESTEROL 48 MG/DL (30-70)
[2017-05-06] MEDS ORDERED: Pantoprazole 40 mg EC Tab PO SCH (09:00)
[2017-05-06] MEDS: Enoxaparin 40 mg Syringe SC SCH (09:13)
[2017-05-06] MEDS: Erythromycin 0.5% Ophth Oint 1 APPLIC/G OU SCH (09:22)
[2017-05-06] MEDS: Artificial Tears Opht Soln OU PRN (09:23)
--- NOTE | 2017-05-06 09:56 | CP.PCM.PN ---
Subjective - Date & Time of Evaluation Date of Evaluation: 05/06/17 Time of Evaluation: 09:00 - Subjective Subjective: Gets intermittent " dizzy feeling" Has had good BP readings following administration of antihypertensives yesterday afternoon Telemetry shows steady sinus rhythm at physiologic rates BP 150/74 mm Hg No signs of CHF Stable from cardiac pint of view May be sent home for out pt management when okayed by admitting MD Objective - Vital Signs/Intake and Output Vital Signs (last 24 hours): Temp Pulse Resp BP Pulse Ox 98.6 F 70 18 158/75 H 95 05/06/17 08:00 05/06/17 09:13 05/06/17 08:00 05/06/17 09:13 05/06/17 08:00 - Medications Medications: Current Medications Amlodipine Besylate (Norvasc) 10 mg PO DAILY [facility] Last Admin: 05/06/17 09:13 Dose: 10 mg Artificial Tears (Artificial Tears) 2 drop OU Q4 PRN PRN Reason: Dry eyes Last Admin: 05/06/17 09:23 Dose: 2 drop Aspirin (Ecotrin) 81 mg PO DAILY [facility] Carbamide Peroxide (Debrox Ear Drops) 5 drop AD BID [facility] Last Admin: 05/05/17 17:31 Dose: 5 drop Enoxaparin Sodium (Lovenox) 40 mg SC DAILY [facility] PRN Reason: Protocol Last Admin: 05/06/17 09:13 Dose: 40 mg Erythromycin (Erythromycin) 1 applic OU BID [facility] Last Admin: 05/06/17 09:22 Dose: 1 applic Pantoprazole Sodium (Protonix Ec Tab) 40 mg PO DAILY [facility] Last Admin: 05/06/17 09:12 Dose: 40 mg Valsartan (Diovan) 320 mg PO DAILY [facility] Last Admin: 05/06/17 09:12 Dose: 320 mg - Labs Labs: 05/06/17 04:45 05/06/17 04:45 PT 11.1 Seconds (9.8-13.1) 05/04/17 14:44 INR 1.0 (0.9-1.2) 05/04/17 14:44 APTT 34.0 Seconds (25.6-37.1) 05/04/17 14:44
--- NOTE | 2017-05-06 10:25 | CP.PCM.PN ---
Subjective - Date & Time of Evaluation Date of Evaluation: 05/06/17 Time of Evaluation: 10:21 - Subjective Subjective: Ms. Kerr was seen and examined at the bedside. She is alert, oriented in all spheres. She denies any headache, dizziness, blurred vision, numbness. She is able to follow simple commands. She refused CTA of the head and neck to R/O VBI. She further explained that she would prefer to follow her early childhood specialist recommendations before going for a CTA. She also state that if her new treatment ordered by the early childhood specialist is not relieving her dizziness, then she will make an appointment with the neurologist ( DR. Mondragon). There was no untoward events overnight. Objective - Vital Signs/Intake and Output Vital Signs (last 24 hours): Temp Pulse Resp BP Pulse Ox 98.6 F 70 18 158/75 H 95 05/06/17 08:00 05/06/17 09:13 05/06/17 08:00 05/06/17 09:13 05/06/17 08:00 - Medications Medications: Current Medications Amlodipine Besylate (Norvasc) 10 mg PO DAILY [facility] Last Admin: 05/06/17 09:13 Dose: 10 mg Artificial Tears (Artificial Tears) 2 drop OU Q4 PRN PRN Reason: Dry eyes Last Admin: 05/06/17 09:23 Dose: 2 drop Aspirin (Ecotrin) 81 mg PO DAILY [facility] Carbamide Peroxide (Debrox Ear Drops) 5 drop AD BID [facility] Last Admin: 05/05/17 17:31 Dose: 5 drop Enoxaparin Sodium (Lovenox) 40 mg SC DAILY [facility] PRN Reason: Protocol Last Admin: 05/06/17 09:13 Dose: 40 mg Erythromycin (Erythromycin) 1 applic OU BID [facility] Pantoprazole Sodium (Protonix Ec Tab) 40 mg PO DAILY [facility] Last Admin: 05/06/17 09:12 Dose: 40 mg Valsartan (Diovan) 320 mg PO DAILY [facility] Last Admin: 05/06/17 09:12 Dose: 320 mg - Labs Labs: 05/06/17 04:45 05/06/17 04:45 PT 11.1 Seconds (9.8-13.1) 05/04/17 14:44 INR 1.0 (0.9-1.2) 05/04/17 14:44 APTT 34.0 Seconds (25.6-37.1) 05/04/17 14:44 - Constitutional Appears: No Acute Distress - Head Exam Head Exam: NORMAL INSPECTION - Neurological Exam Neurological Exam: Alert, Awake, Oriented x3 Neuro motor strength exam: Left Upper Extremity: 5, Right Upper Extremity: 5, Left Lower Extremity: 5, Right Lower Extremity: 5 Additional comments: She is able to answer questions, follow commands. Sensation remains intact. Assessment and Plan (1) Vertebrobasilar insufficiency Assessment & Plan: Case discussed with Dr. Mondragon, continue all current medical, physical, and occupational therapies. Recommend CTA of the head and neck which the patient refused. If her new treatment is not relieving her dizziness, to follow up with Dr. Mondragon at [address] [facility] [address] [place] [address], [phone]. Status: Acute
[2017-05-06] MEDS: Carbamide Peroxide OTIC SOLUTION AD SCH (11:50)
[2017-05-06 12:09] VITALS: BP 153/85; PULSE 73; TEMP 98.5; O2SAT 96
[2017-05-06] MEDS ORDERED: Erythromycin 0.5% Ophth Oint 1 APPLIC/3.5 G OU SCH (17:00)
--- NOTE | 2017-05-06 17:20 | CP.PCM.DIS ---
Provider - Provider Date of Admission: 05/04/17 16:50 Attending physician: Noe Calderon MD Primary care physician: Dr. Reid Consults: Dr. Mondragon, Dr. Malin Time Spent in preparation of Discharge (in minutes): 30 Diagnosis - Discharge Diagnosis (1) Dizziness Status: Resolved Priority: Low (2) Hypokalemia Status: Resolved Priority: Low (3) Vertebrobasilar insufficiency Status: Acute Priority: Low Hospital Course - Lab Results Lab Results: Most Recent Lab Values WBC 6.5 K/uL (4.8-10.8) 05/06/17 04:45 RBC 4.64 Mil/uL (3.80-5.20) 05/06/17 04:45 Hgb 13.4 g/dL (12.0-16.0) 05/06/17 04:45 Hct 40.2 % (34.0-47.0) 05/06/17 04:45 MCV 86.7 fl (81.0-99.0) 05/06/17 04:45 MCH 28.8 pg (27.0-31.0) 05/06/17 04:45 MCHC 33.2 g/dL (33.0-37.0) 05/06/17 04:45 RDW 14.2 % (11.5-14.5) 05/06/17 04:45 Plt Count 244 K/uL (130-400) 05/06/17 04:45 PT 11.1 Seconds (9.8-13.1) 05/04/17 14:44 INR 1.0 (0.9-1.2) 05/04/17 14:44 APTT 34.0 Seconds (25.6-37.1) 05/04/17 14:44 Sodium 143 mmol/l (132-148) 05/06/17 04:45 Potassium 3.9 MMOL/L (3.6-5.0) 05/06/17 04:45 Chloride 104 mmol/L (98-107) 05/06/17 04:45 Carbon Dioxide 28 mmol/L (22-30) 05/06/17 04:45 Anion Gap 15 (10-20) 05/06/17 04:45 BUN 13 mg/dl (7-17) 05/06/17 04:45 Creatinine 0.8 mg/dl (0.7-1.2) 05/06/17 04:45 Est GFR ( Amer) > 60 05/06/17 04:45 Est GFR (Non-Af Amer) > 60 05/06/17 04:45 POC Glucose (mg/dL) 119 mg/dL (65-110) H 05/05/17 14:12 Random Glucose 93 mg/dL (65-105) 05/06/17 04:45 Calcium 9.3 mg/dL (8.4-10.2) 05/06/17 04:45 Total Bilirubin 0.6 mg/dl (0.2-1.3) 05/06/17 04:45 AST 17 U/L (14-36) 05/06/17 04:45 ALT 21 U/L (9-52) 05/06/17 04:45 Alkaline Phosphatase 67 U/L (38-126) 05/06/17 04:45 Troponin I < 0.0120 ng/mL (0.00-0.120) 05/05/17 21:45 Total Protein 7.7 G/DL (6.3-8.2) 05/06/17 04:45 Albumin 4.0 g/dL (3.5-5.0) 05/06/17 04:45 Globulin 3.8 gm/dL (2.2-3.9) 05/06/17 04:45 Albumin/Globulin Ratio 1.1 (1.0-2.1) 05/06/17 04:45 Triglycerides 66 mg/DL (0-149) 05/06/17 04:45 Cholesterol 174 mg/dL (0-199) 05/06/17 04:45 LDL Cholesterol Direct 92 mg/dL (0-129) 05/06/17 04:45 HDL Cholesterol 48 MG/DL (30-70) 05/06/17 04:45 Vitamin B12 458 pg/mL (239-931) 05/05/17 06:05 TSH 3rd Generation 1.47 mIU/ML (0.46-4.68) 05/05/17 06:05 Urine Color Colorless (YELLOW) 05/04/17 15:53 Urine Clarity Clear (Clear) 05/04/17 15:53 Urine pH 8.0 (5.0-8.0) 05/04/17 15:53 Ur Specific Barrett 1.005 (1.003-1.030) 05/04/17 15:53 Urine Protein Negative mg/dL (NEGATIVE) 05/04/17 15:53 Urine Glucose (UA) Neg mg/dL (Normal) 05/04/17 15:53 Urine Ketones Negative mg/dL (NEGATIVE) 05/04/17 15:53 Urine Blood Negative (NEGATIVE) 05/04/17 15:53 Urine Nitrate Negative (NEGATIVE) 05/04/17 15:53 Urine Bilirubin Negative (NEGATIVE) 05/04/17 15:53 Urine Urobilinogen 0.2-1.0 mg/dL (0.2-1.0) 05/04/17 15:53 Ur Leukocyte Esterase Neg Urmila/uL (Negative) 05/04/17 15:53 Urine RBC (Auto) 1 /hpf (0-3) 05/04/17 15:53 Urine Microscopic WBC < 1 /hpf (0-5) 05/04/17 15:53 Ur Squamous Epith Cells < 1 /hpf (0-5) 05/04/17 15:53 - Hospital Course Hospital Course: 77 yr old F admitted for dizziness and hypokalemia. Symptoms improved and resolved, patient was evaluated by cardiology and neurology. Patient refused head and neck CTA. Was discharged medically stable with instructions to follow up with PMD-Dr. Reid, neurology-Dr. Mondragon and cardiology-Dr. Malin within 1 week. 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) - ENT Exam ENT Exam: Mucous Membranes Moist - Neck Exam Neck exam: Full Rom - Respiratory Exam Respiratory Exam: Clear to PA & Lateral, NORMAL BREATHING PATTERN - Cardiovascular Exam Cardiovascular Exam: REGULAR RHYTHM, +S1, +S2 - GI/Abdominal Exam GI & Abdominal Exam: Normal Bowel Sounds, Soft - Extremities Exam Extremities exam: full ROM - Neurological Exam Neurological exam: Alert, Oriented x3, Reflexes Normal - Psychiatric Exam Psychiatric exam: Normal Affect, Normal Mood - Skin Skin Exam: Dry, Intact, Warm Discharge Plan - Discharge Medications Prescriptions: Carbamide Peroxide [Debrox Ear Drops] 5 drop AD BID #1 bottle Erythromycin 0.5% [Erythromycin] 1 applic OU BID #1 tube Polyethylene Glycol/Polyvinyl [Artificial Tears] 2 drop OU Q4 PRN #1 bottle PRN Reason: Dry Eyes - Follow Up Plan Condition: STABLE Disposition: HOME/ ROUTINE Instructions: Dizziness (GEN) Additional Instructions: pt.cleared for d/c to Home today by Dr.AMin Patel and Recommend CTA of the head and neck by which the patient refused. If her new treatment is not relieving her dizziness, to follow up with Dr. Mondragon at [address] [place] [address] pt will f/u with and outpatient Referrals: Mekhi Malin MD [Staff Provider] - Bony Mondragon MD [Medical Doctor] - Clinical Quality Measures - Date & Time of Discharge Summary Date of Discharge Summary: 05/06/17 Time of Discharge Summary: 17:32
== END 2017-05-06 14:26 | disposition home or self-care (01) | DRG 69 ==
LOC: H.ER 13:23 → H.ERHOLD 16:50 → H.TEL 22:22
PROVIDERS: ADMIT Internal Medicine; ATTEND Internal Medicine
DX: G45.0 Vertebro-basilar artery syndrome (principal); E66.09 Other obesity due to excess calories; Z68.38 Body mass index [BMI] 38.0-38.9, adult; E87.6 Hypokalemia; I10 Essential (primary) hypertension; M17.10 Unilateral primary osteoarthritis, unspecified knee; H91.91 Unspecified hearing loss, right ear; H54.61 Unqualified visual loss, right eye, normal vision left eye; Z87.891 Personal history of nicotine dependence; Z94.7 Corneal transplant status